=== PATIENT | female | born 1965 | race Caucasian/White ===

== ENCOUNTER 2023-12-03 16:14 | Emergency (ER) | payer OTHER ==
[~2023-12-03] VITALS: Ht 165.1 cm; Wt 76.7 kg
[2023-12-03] VITALS (7 sets, daily range): BP systolic 117–150; BP diastolic 62–85
[~2023-12-03 16:14] MED LIST: ALORA0.025 MG TD; ANUCORT-HC25 MG RE; CIPRO500 MG OR; LOSARTAN POTASS50 MG PO; PYRIDIUM200 MG OR; VALTREX1 GM OR
[2023-12-03 17:12] LABS: URINE BILIRUBIN - DIPSTICK Negative (NEGATIVE); URINE BLOOD DIPSTICK Moderate (NEGATIVE); URINE GLUCOSE - DIPSTICK Negative (NEGATIVE); URINE KETONE 40 mg/dL (NEGATIVE); URINE LEUK ESTERASE Negative (NEGATIVE); URINE NITRITE - DIPSTICK Negative (Negative); URINE PH 5.5 (4.5-8.0); URINE PROTEIN - DIPSTICK Negative (NEG-TRACE); URINE SPECIFIC GRAVITY 1.025; URINE UROBILINOGEN - DIPSTICK 0.2 E.U./dL (0.2)
[2023-12-03 17:13] LABS: BASO% 0.5 % (0-3); EOS% 0.2 % (0-8); HEMATOCRIT 41.1 % (37.0-47.0); HEMOGLOBIN 13.8 g/dl (12.0-16.0); IMMATURE GRANULOCYTES 0.2 % (0.0-5.0); LYMPH% 9.2 % (15-41); MEAN CELL VOLUME 89.5 fL CALC (80.0-100.0); MEAN CORPUSCULAR HGB 30.1 pG CALC (26.0-32.0); MEAN CORPUSCULAR HGB CONC 33.6 g/dL CAL (32.0-36.0); MONO% 3.7 % (2-13); NEUT# 7.47 thou/uL (2.00-7.15); NEUT% 86.2 % (42-76); RED BLOOD COUNT 4.59 mill/uL (4.20-5.60); RED CELL DISTRI WIDTH 12.7 % (11.5-15.5)
[2023-12-03 17:16] LABS: URINE COLOR Yellow
[2023-12-03 17:21] LABS: URINE SQUAMOUS EPITHELIAL CELL FEW EPI/hpf (0-FEW); URINE WBC 0-2 WBC/hpf (0-5)
[2023-12-03 17:25] LABS: BILIRUBIN, TOTAL 1.9 mg/dL (0.02-1.3); CREATININE 1.1 mg/dL (0.5-1.0); POTASSIUM 4.7 mmol/l (3.5-5.1); TOTAL PROTEIN 6.4 g/dL (6.3-8.2)
[2023-12-03] MEDS ORDERED: TORADOL PO (18:42)
[2023-12-03] MEDS ORDERED: TAMSULOSIN0.4 MG PO (18:42)
[2023-12-03] MEDS ORDERED: ZOFRAN4 MG/TAB PO (18:43)
== END 2023-12-03 18:52 | disposition home or self-care (01) | DRG 694 ==
LOC: ED 16:14
PROVIDERS: Family Medicine
DX: N13.2 Hydronephrosis with renal and ureteral calculous obstruction (principal); I10 Essential (primary) hypertension; E78.5 Hyperlipidemia, unspecified; Z90.49 Acquired absence of other specified parts of digestive tract; Z90.710 Acquired absence of both cervix and uterus